=== PATIENT | male | born 1950 | race Caucasian/White ===

== ENCOUNTER 2017-03-23 06:05 | Day surgery (SDC) | payer MEDICARE, OTHER ==
--- NOTE | 2017-03-18 21:54 | HP ---
ADMITTING HISTORY AND PHYSICAL: DATE OF ADMISSION: 03/23/17 AGE: 67 years. SEX: Male. ADMITTING DIAGNOSES: 1. Gross hematuria. 2. Calculus, right ureteropelvic junction. PLANNED PROCEDURE: Shock wave lithotripsy of right renal calculus. SURGEON: Juan Yoder MD ADMITTING HISTORY AND PHYSICAL: Jimmie Steel is a 67-year-old gentleman with a history of recurrent renal calculi. He was recently evaluated for an episode of gross hematuria. Renal sonogram revealed an 8.5 mm calculus at the right ureteropelvic junction without any hydronephrosis. In addition, he has a smaller calculus in the lower pole of the right kidney. PAST MEDICAL HISTORY: Significant for: 1. Renal calculi. 2. Diabetes. 3. Hypertension. 4. Hypothyroidism. 5. High cholesterol. MEDICATIONS: On admission: 1. Metformin 500 mg daily. 2. Norvasc 5 mg daily. 3. Levothyroxine 0.5 mg daily. 4. Zocor 40 mg daily. ALLERGIES AND INTOLERANCES: No known drug allergies. REVIEW OF SYSTEMS: He is otherwise in excellent health and fairly physically active. He denies any chest pain or shortness of breath. PHYSICAL EXAMINATION GENERAL: Reveals a pleasant healthy-appearing gentleman. VITAL SIGNS: Blood pressure is 136/92, pulse 64 per minute, regular, and oxygen saturation 97% on room air. LUNGS: Clear bilaterally. CARDIOVASCULAR EXAM: Regular rate and rhythm. S1, S2. ABDOMEN: Soft with mild right flank tenderness. IMPRESSION: A 67-year-old gentleman with an episode of gross hematuria, which appears to be secondary to an 8.5-mm calculus at the right ureteropelvic junction without hydronephrosis. PLAN/RECOMMENDATIONS: Planned procedure is shock wave lithotripsy of right renal calculus. CC: Bess Garcia MD; Loree Burgos NP; Juan Yoder MD* [id number]/[facility] #: [id number] MTDD
[~2017-03-23 06:05] MED LIST: Buffered Lidocaine 0.9% SYRIN* 5 ML/SYR SYRINGE INTRADERM ONE; Famotidine IV* 10 MG/ML 2 ML (20 mg) IV ONE
[2017-03-23] MEDS ORDERED: Buffered Lidocaine 0.9% SYRIN* 5 ML/SYR SYRINGE ONE ×2 (06:41→06:44)
[2017-03-23] MEDS ORDERED: cefTRIAXone(*) 2 GM ADDV.VIAL IVPB ONE (06:44)
[2017-03-23] MEDS ORDERED: Famotidine IV* 10 MG/ML 2 ML (20 mg) ONE (06:44)
[2017-03-23] MEDS ORDERED: Metoclopramide IV* 5 MG/ML 2 ML VIAL ONE (06:44)
[2017-03-23] MEDS: Metoclopramide IV* 5 MG/ML 2 ML VIAL IV SLOW PU ONE ×2 (06:59→07:00)
[2017-03-23] MEDS ORDERED: Remifentanil* 2 MG VIAL ONE (07:26)
[2017-03-23] MEDS ORDERED: Midazolam* 1 MG/ML 2 ML VIAL (2 MG) ONE (07:26)
--- NOTE | 2017-03-23 07:57 | RAD ---
HISTORY: Shock wave lithotripsy COMPARISONS: None VIEWS: Frontal views of the abdomen. FINDINGS: BOWEL: There is a nonspecific bowel gas pattern, with nondilated small bowel gas noted. CALCULI: There is a 0.3 cm calculus overlying the transverse process of L5 to the left. Vascular calcifications are noted in pelvis BONES AND SOFT TISSUES: Degenerative changes are noted OTHER FINDINGS: The lung bases are clear. There is no subphrenic gas. IMPRESSION: PROBABLE LEFT-SIDED NEPHROLITHIASIS.
[2017-03-23] MEDS ORDERED: fentaNYL* 50 MCG/ML 2 ML VIAL (100 MCG VIAL) IV PRN (08:37)
[2017-03-23] MEDS ORDERED: Ondansetron INJ* 2 MG/ML VIAL IV PRN (08:37)
[2017-03-23] MEDS ORDERED: Phenylephrine IV* 40 MCG/ML 10 ML SYRINGE ONE (08:39)
[2017-03-23 09:20] VITALS: BP 132/86
--- NOTE | 2017-03-23 12:32 | OP ---
DATE OF OPERATION: 03/23/17 [facility] DATE OF : 46 SURGEON: Juan Yoder MD ANESTHESIOLOGIST: Dr. Pollard. ANESTHESIA: General. PRE-OP DIAGNOSIS: Right renal calculi. POST-OP DIAGNOSIS: Right renal calculi. OPERATIVE PROCEDURE: Shockwave lithotripsy of right renal calculi. INDICATIONS: Jimmie Steel is a 67-year-old gentleman with a history of recurrent renal calculi. He had recently been evaluated for an episode of gross hematuria and was noted to have a calculus in the right renal pelvis. In addition, he has a smaller calculus in the right kidney. He is now being brought in for lithotripsy. COMPLICATIONS: None. POSTOPERATIVE CONDITION: Stable. DESCRIPTION OF PROCEDURE: After induction of general anesthesia, patient was placed on the lithotripsy table in supine position. The calculi, which were not easy to visualize on the preoperative KUB due to overlying bowel contents could be visualized on fluoroscopy and appeared now actually to be adjacent to each other, suggesting that the dominant calculus had moved from its position in the renal pelvis netbackup administrator to the mid pole. Shockwave lithotripsy was commenced at a rate of 90 shocks per minute. After the initial 300 shocks, there was a pause in lithotripsy for a few minutes to minimize any potential trauma to the kidney. Lithotripsy was then resumed and a total of 1200 shocks were administered, good fragmentation was observed. The patient tolerated the procedure satisfactorily and was transferred back to the recovery area in stable condition. CC: Loree Burgos NP* [id number]/[facility] #: [id number] TINO
== END 2017-03-23 09:30 | disposition home or self-care (01) ==
LOC: OR 06:05
PROVIDERS: ATTEND Urology
DX: N20.0 Calculus of kidney (principal); R31.0 Gross hematuria; E11.9 Type 2 diabetes mellitus without complications; Z79.84 Long term (current) use of oral hypoglycemic drugs; I10 Essential (primary) hypertension; I25.10 Atherosclerotic heart disease of native coronary artery without angina pectoris; Z87.891 Personal history of nicotine dependence; E03.9 Hypothyroidism, unspecified
CPT/HCPCS: 74000; J0696; J2250